=== PATIENT | male | born 1945 | race Caucasian/White ===

== ENCOUNTER → 2018-03-03 15:57 | Outpatient (CLI) | payer MEDICARE, SELFPAY ==
--- NOTE | 2018-03-03 16:08 | RAD_ITS ---
STUDY: X-RAY - PELVIS AND LEFT HIP REASON FOR EXAM: Male, 72 years old. Pain. No known injury. TECHNIQUE: Radiological exam, hip, unilateral, with pelvis when performed; 2 or 3 views. COMPARISON: None. FINDINGS: There is a non-specific bowel gas pattern. Normal visualized soft tissue structures. Normal bilateral iliac wings, sacroiliac joints and visualized sacrum. Normal bilateral superior and inferior pubic rami. Normal pubic symphysis. Normal bilateral ischial tuberosities. Normal visualized femoral head. Normal acetabulum. There is mild articular joint space narrowing of the medial aspect of the hip joint. RAD/Hip 2-3 Views with Pelvis IMPRESSION: Mild narrowing of the hip joint. Electronically Signed: Tucker Martinez MD at 15:47 EDT Tel , Service support ,
--- NOTE | 2018-03-03 16:09 | RAD_ITS ---
STUDY: X-RAY - LUMBAR SPINE REASON FOR EXAM: Male, 72 years old. Back pain. History of spinal stenosis. TECHNIQUE: 5 view(s) of the lumbar spine were obtained. COMPARISON: None FINDINGS: Normal lumbar lordosis. There is no substantial scoliosis. There is a normal alignment of the vertebrae. There is multilevel endplate spondylosis of the lumbar vertebrae. There is severe disc space narrowing of L2-L3, L3-L4 and to a lesser extent L4-L5. There is no demonstrated acute compression fracture deformity. There is no demonstrated spondylolysis of the pars interarticulares. There is atherosclerotic calcification of the abdominal aorta without a demonstrated aneurysm. RAD/Lumbar Spine 2 or 3 Views IMPRESSION: Degenerative changes of the spine, as detailed above. Electronically Signed: Tucker Martinez MD at 15:49 EDT Tel , Service support ,
== END ==
PROVIDERS: Family Provider Family Medicine; PCP Family Medicine; Visit Provider Anesthesiology
DX: M47.896 Other spondylosis, lumbar region (principal); M48.061 Spinal stenosis, lumbar region without neurogenic claudication
CPT/HCPCS: 72100; 73502

== ENCOUNTER → 2018-05-12 11:29 | Outpatient (CLI) | payer MEDICARE, SELFPAY ==
--- NOTE | 2018-05-12 11:36 | RAD_ITS ---
STUDY: X-RAY - RIGHT KNEE REASON FOR EXAM: Male, 72 years old. Chronic pain TECHNIQUE: 3 view(s) of the knee. COMPARISON: None. FINDINGS: There is medial compartment knee replacement hardware. The hardware is intact. There is NO acute bony abnormality. There are NO soft tissue abnormalities. There is NO joint effusion. RAD/Knee 3 Views IMPRESSION: Medial knee compartment replacement hardware is intact. Electronically Signed: Michael Villegas MD at 7:14 EDT , Service support ,
--- NOTE | 2018-05-12 11:40 | RAD_ITS ---
STUDY: X-RAY - LEFT KNEE REASON FOR EXAM: Male, 72 years old. Pain TECHNIQUE: 3 view(s) of the knee. COMPARISON: None. FINDINGS: There is partial knee replacement hardware in the medial knee compartment. There are NO acute fractures or malalignments. There is NO soft tissue swelling or joint effusion. RAD/Knee 3 Views IMPRESSION: Medial knee compartment replacement hardware is intact. There is NO acute bony abnormality. Electronically Signed: Michael Villegas MD at 6:39 EDT , Service support ,
== END ==
PROVIDERS: Family Provider Family Medicine; PCP Family Medicine; Referring Provider Anesthesiology Pain Medicine; Visit Provider Anesthesiology Pain Medicine
DX: M17.0 Bilateral primary osteoarthritis of knee (principal); Z96.653 Presence of artificial knee joint, bilateral
CPT/HCPCS: 73562

== ENCOUNTER 2020-03-19 08:02 | Day surgery (SDC) | payer MEDICARE, SELFPAY ==
--- NOTE | 2020-03-19 | BUR_PTH ---
PATIENT: BRITT MACKAY [place] [facility] [place][id number] AGE/SX: 74/M ROOM: RE03/19/[address]: Dr. Sidney Velásquez MD : 1945 BED: DIS: 03/19/2020 SPEC #: [id number] RECD: 03/19/20 11:50 STATUS: SAMRA MONSE #: [id number] BISHOP: 03/19/20 00:[address]: Sidney Velásquez DEPT: SURGICAL PATHOLOGY RECD BY: Italo Salazar ENTERED: 03/19/20 11:50 SP TYPE: BURSA ZULEYMA DR: Dr. Evans Soares MD Tissues: Bursa, NOS Procedures: Surgery Specimen Level III HEADER OPERATION: Excision elbow olecranon bursa PRE-OP DIAGNOSIS: Olecranon bursitis left elbow TISSUE SUBMITTED: Bursa left elbow MICROSCOPIC DIAGNOSIS Bursa of left elbow, excision: Reparative and reactive change. Skin with no pathologic change. AM:sanna 03/20/20 MICROSCOPIC DESCRIPTION Slides are reviewed. GROSS DESCRIPTION Received in fixative is one container labeled with the patient's name and designated bursa left elbow. The specimen consists of a glistening fragment of light pink-white soft tissue measuring 4.5 x 1.5 x 1 cm. The specimen is sectioned and totally submitted in one cassette. / AM:sanna 03/19/20 TC:5 CPT: 45997
[2020-03-19] MEDS: Bupivacaine Mpf 0.5% 30 ML VIAL (01:00)
[2020-03-19] MEDS: Lactated Ringers 1,000 ML 125 ML IV (07:20)
[2020-03-19 08:28] VITALS: BP 145/93; PULSE 60; RESP 16; TEMP 36.6; O2SAT 100; BMI 33.2
[2020-03-19 08:30] LABS: Absolute Lymphocyte Count 2.76 X10^3/uL (0.83-4.51); Absolute Neutrophil Count 4.6 X10^3/uL (2.0-7.7); Basophil# 0.07 X10^3/uL; Basophil% 0.8 % (0-1); Eosinophils% 4.6 % (0-5); Hematocrit 39.1 % (40-54); Hemoglobin 13.2 g/dL (13.0-16.5); Lymphocyte # 2.76 X10^3/ul (4.0); Lymphocyte % 31.9 % (19-41); Mean Corp Hgb Conc 33.8 g/dL (32-36); Mean Corpuscular Hgb 33.8 pg (27.0-32.0); Mean Corpuscular Volume 100.3 fL (80-94); Mean Platelet Vol. 9.4 fl (6.2-12.0); Monocyte# 0.85 X10^3/uL; Monocyte% 9.8 % (0-10); NRBC Flagged by Analyzer 0 % (0-5); Neutrophil # 4.56 X10^3/uL (2.7-7.7); Neutrophil % 52.7 % (47-70); Platelet Count 267 K/mm3 (150-450); RBC Distribution Width CV 14.1 % (11.6-14.6); RBC Distribution Width SD 50.8 fl (35.1-43.9); White Blood Count 8.7 K/mm3 (4.4-11.0)
[2020-03-19 08:47] LABS: Anion Gap 3 (5-15); BUN 33 mg/dL (7-18); BUN/Creat Ratio 23.2 RATIO (10-20); Calcium,Total 10.2 mg/dL (8.5-10.1); Chloride 107 mmol/L (98-107); Creatinine, Serum 1.42 mg/dL (0.70-1.30); EST Glomerular Filtration Rate 52 mL/min (>60); Est Glom Filt Rate - Afr Amer 63 mL/min (>60); Estimated Creatinine Clearance 51.61 ml/min; Glucose 106 mg/dL (74-106); Potassium 4.2 mmol/L (3.5-5.1); Sodium Level 138 mmol/L (136-145)
[2020-03-19] MEDS: Cefazolin 1 GM/50 ML BAG IV (09:39)
[2020-03-19 10:27] VITALS: BP 138/97; BP 145/93; PULSE 60; RESP 20; TEMP 36.6; O2SAT 95
[2020-03-19 10:30] VITALS: BP 136/84; BP 145/93; PULSE 54; RESP 18; O2SAT 94
--- NOTE | 2020-03-19 10:32 | OP.PCM_ITS ---
Report of Operation Date of Procedure: 03/19/20 Pre-Operative Diagnosis: Left elbow recurrent olecranon bursitis, aseptic Post-Operative Diagnosis: Left elbow recurrent olecranon bursitis, aseptic Surgery/Procedure Performed:: Excision left elbow olecranon bursa Description of Surgical Findings:: Complete excision of bursa. There was a 1 cm x 5 mm skin resection. radio artist: None Type of Anesthesia:: General Anesthesiologist: Chris Glass Special Medications: Ancef Specimen's removed: Bursa Estimated Blood Loss (mL): Minimal Fluids Replaced: Crystalloid Description of Procedure: On the day of the procedure patient's left elbow was marked in the preoperative area. Patient was taken back to the operating room and there transferred to the table in the supine position. Anesthesia assumed control C-spine airway and administered anesthetic. All bony prominences were identified well-padded. Left arm was placed on an armboard and a tourniquet was placed on left upper arm. Left arm was then prepped in a sterile fashion while surgeon scrubbed. Upon reentering the room the left upper extremity was draped in a sterile orthopedic fashion. Curvilinear incision was marked out. At this time the arm was placed over the patient's chest and secured. Timeout was called and when agreed upon the side, the site, and she is reviewed performed, patient's identity and antibiotics given. Tourniquet was then placed up to 250 mmHg and incision was taken through skin and bluntly dissected down to the bursa. We then sharply dissected out the bursa. Bursa was identified by tenosynovial lining. As we carefully dissected around it the bursa was removed in its entirety. When we went to inspect the skin it was noted there was a 1 cm x 5 mm area of resected skin that had been resected with the superficial part of the bursa. Wound is irrigated with copious amounts of normal saline. Skin was closed with 2-0 Vicryl final skin closure was done with 3-0 nylon. The skin maryann was closed with 3-0 nylon. Tourniquet was let down. All areas around the incision and skin neck pinked up signifying good blood flow. Xeroform dressing was placed. Bulky dressing was placed. Patient was awakened anesthesia and turned to the PACU for recovery. Postop plan: Patient will wear the bulky dressing for 7 days. Remove the dressing then and if the incision is clean and dry can resume range of motion as tolerated. Follow-up in the office in 2 weeks for suture removal. - Complications There was a small skin maryann in the skin over the olecranon. - Admit VTE Documentation VTE Present on Admission: No VTE Mechan Device Prophylaxis: SCD's VTE Pharm Prophylaxis ordered?: No Reason prophylaxis not ordered:: Treatment Not Indicated
[2020-03-19] MEDS: Ketorolac 30 MG/ML Syringe IV (10:35)
[2020-03-19 10:45] VITALS: BP 144/88; BP 145/93; PULSE 53; RESP 18; O2SAT 94
[2020-03-19 10:58] VITALS: BP 139/84; BP 145/93; PULSE 52; RESP 18; TEMP 36.4; O2SAT 98
[2020-03-19 11:54] VITALS: BP 145/93; BP 149/88; PULSE 54; RESP 16; TEMP 36.1; O2SAT 99
== END 2020-03-19 11:57 | disposition home or self-care (01) ==
LOC: SDC 08:03 → AC 08:06
PROVIDERS: PCP Family Medicine; Referring Provider Specialist; Visit Provider Specialist
PROC: (CPT 24105; principal; 2020-03-19 09:20)
DX: M70.22 Olecranon bursitis, left elbow (principal); E78.00 Pure hypercholesterolemia, unspecified; D64.9 Anemia, unspecified; Z79.899 Other long term (current) drug therapy; I10 Essential (primary) hypertension; Z87.891 Personal history of nicotine dependence; M19.90 Unspecified osteoarthritis, unspecified site; M10.9 Gout, unspecified
CPT/HCPCS: 24105; 36415; 80048; 85025; 88304; J7120; J2405

== ENCOUNTER 2021-04-16 11:18 | Emergency (ER) | payer MEDICARE, SELFPAY ==
[2021-04-16 11:22] VITALS: BP 181/106; PULSE 57; RESP 20; TEMP 36.6; O2SAT 100; BMI 38.0
--- NOTE | 2021-04-16 11:57 | CT_ITS ---
INDICATION: Injury/Pain EXAMINATION: CT BRAIN - CT Head or Brain W/O Contrast Injection TECHNIQUE: Multiple axial images were obtained of the head without intravenous contrast. A radiation dose optimization technique was used for this scan. IV Contrast dosage and agent: None. COMPARISON: None FINDINGS: BRAIN PARENCHYMA: Subtle scattered areas of low attenuation are visualized in the periventricular and subcortical white matter suggestive of chronic microvascular disease but no evidence of acute territorial infarct is seen. Rodrigues-white matter differentiation is unremarkable. No evidence of parenchymal hemorrhages or contusions, no evidence of intra or extra-axial fluid collection is seen. No evidence of intracranial mass or mass effect, no evidence of midline shift is seen. Prominence of the ventricles and sulci suggestive of chronic atrophic brain changes unremarkable for the patient''s age. The visualized vessels are unremarkable, no evidence of areas of increased attenuation. CSF SPACES: Appropriate for age. No hydrocephalus. Basal cisterns are patent. CALVARIUM, SKULL BASE, PARANASAL SINUSES AND MASTOID AIR CELLS: Unremarkable. No discrete lytic or blastic abnormalities. ORBITS: Both globes, extraocular muscles, optic nerves and retrobulbar fat appear unremarkable. CT/Brain/Head without Contrast IMPRESSION: No evidence of intracranial pathology is seen. Electronically Signed: Shen Vernon MD at 13:24 EDT Tel , Service support ,
--- NOTE | 2021-04-16 11:57 | CT_ITS ---
INDICATION: Injury/Pain EXAMINATION: CT CERVICAL SPINE - CT Spine Cervical W/O Contrast Injection TECHNIQUE: Helically acquired images were obtained of the cervical spine. 2D reformatted images were reviewed. A radiation dose optimization technique was used for this scan. IV Contrast dosage and agent: None. COMPARISON: None. FINDINGS: Straightening of the normal alignment of the columns of the cervical spine is visualized. No evidence of spondylolisthesis. The craniocervical junction articulation is unremarkable. No evidence of compression deformity of the cervical vertebral bodies, no evidence of cortical irregularity and lucency to suggest a fracture. Cervical vertebral bodies demonstrate unremarkable contours, multilevel degenerative endplate changes are seen. Decreased intervertebral disc height visualized at multiple levels most prominent at C6-C7 and C7-T1 and C5-C6. Multilevel degenerative disc osteophyte complex, uncovertebral disease and hypertrophic changes in the facet joints with moderate narrowing of the spinal canal and moderate to severe narrowing of the neuroforamina is visualized at multiple levels but most prominent at C6-C7, C7-T1 at C5-C6. The prevertebral posterior neck soft tissues are unremarkable. Limited evaluation of the upper lung lenz demonstrates no evidence of acute pathology. CT/Spine Cervical without Contras IMPRESSION: Degenerative changes of the cervical spine. No evidence of acute cervical spinal fracture or spondylolisthesis. Electronically Signed: Shen Vernon MD at 13:27 EDT Tel , Service support ,
--- NOTE | 2021-04-16 12:56 | RAD_ITS ---
INDICATION: Injury/Pain EXAMINATION/TECHNIQUE: X-RAY - LEFT XR Wrist Min 3 Views 3 VIEWS COMPARISON: None. FINDINGS: SOFT TISSUES: No soft tissue swelling or gas. No radiopaque foreign body. BONES/JOINTS: No acute fracture or subluxation.. Unremarkable alignment. Degenerative changes visualized most prominent in the first carpometacarpal joint. No sclerotic or destructive changes observed. RAD/Wrist min 3 Views IMPRESSION: Degenerative changes, no acute osseous abnormality is seen. Electronically Signed: Shen Vernon MD at 13:31 EDT Tel , Service support ,
--- NOTE | 2021-04-16 12:56 | RAD_ITS ---
INDICATION: Injury/Pain EXAMINATION/TECHNIQUE: X-RAY - LEFT XR Elbow Min 3 Views COMPARISON: None. FINDINGS: SOFT TISSUES: No soft tissue swelling or gas. No radiopaque foreign body. BONES/JOINTS: There is no displacement of the anterior or posterior fat pads. No acute fracture or subluxation. A well-corticated lucency is visualized in the medial upper condyle suggestive of a vascular grove, subtle soft tissue calcification visualized overlying the medial condyle. Mild irregularity of the lateral epicondyles suggestive of degenerative changes. Unremarkable alignment. Mild narrowing of the joint spaces consistent with degenerative changes. No sclerotic or destructive changes observed. RAD/Elbow min 3 Views IMPRESSION: Degenerative changes, no acute osseous abnormality seen. Electronically Signed: Shen Vernon MD at 13:29 EDT Tel , Service support ,
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
[2021-04-16 14:15] VITALS: PULSE 91; RESP 18; O2SAT 99
--- NOTE | 2021-04-16 14:16 | ED.RN ---
THIS NURSE REVIEWED D/C INSTRUCTIONS WITH PT. PT VERBALIZED UNDERSTANDING OF INSTRUCTIONS. PT DENIES FURTHER NEEDS OR QUESTIONS AT THIS TIME
== END 2021-04-16 14:16 | disposition home or self-care (01) ==
PROVIDERS: Emergency Provider Emergency Medicine; PCP Family Medicine
DX: S09.90XA Unspecified injury of head, initial encounter (principal); S16.1XXA Strain of muscle, fascia and tendon at neck level, initial encounter; S50.02XA Contusion of left elbow, initial encounter; Z87.891 Personal history of nicotine dependence; V89.2XXA Person injured in unspecified motor-vehicle accident, traffic, initial encounter
CPT/HCPCS: 70450; 72125; 73080; 73110; 99284